=== PATIENT | female | born 1935 | race Caucasian/White ===

== ENCOUNTER → 2018-05-31 | Outpatient (CLI) | payer MEDICARE ==
[~2018-05-31] MED LIST: ACYC800 PO; CHOLESTEROL MED; DOCU100 PO; EZET10; GEMF600 PO; HYDACE5 PO; HYOS.125 SL; LACT10SY PO; LEVSOD100 PO; LEVSOD175; LEVSOD175 PO; LOPE2C PO; LOSHYD PO; OXYACE5T PO; PROM25 PO; TRAM50 PO; [UNRECOGNIZED DRUG - REMARK]
== END | disposition home or self-care (01) ==
LOC: LAB SHORT 13:15 → LAB 13:15
DX: L08.9 Local infection of the skin and subcutaneous tissue, unspecified (principal)
CPT/HCPCS: 87070; 87205

== ENCOUNTER 2019-01-16 17:43 | Emergency (ER) | payer MEDICARE ==
[~2019-01-16] VITALS: Ht 152.4 cm; Wt 72.6 kg
[2019-01-16 18:24] LABS: BASOPHILS ABSOLUTE AUTO 0.02 K/mm3 (0.00-0.23); BASOPHILS PERCENT AUTO 0 % (0-2); EOSINOPHILS ABSOLUTE AUTO 0.04 K/mm3 (0.00-0.68); EOSINOPHILS PERCENT AUTO 1 % (0-6); Hematocrit 41.9 % (33.0-51.0); Hemoglobin 13.5 g/dL (11.5-16.0); IMMATURE GRAN ABSOLUTE AUTO 0.04 K/mm3 (0.00-0.10); IMMATURE GRAN PERCENT AUTO 1 % (0-1); LYMPHOCYTES ABSOLUTE AUTO 0.43 K/mm3 (0.84-5.20); LYMPHOCYTES PERCENT AUTO 5 % (21-46); MONOCYTES ABSOLUTE AUTO 0.49 K/mm3 (0.16-1.47); MONOCYTES PERCENT AUTO 6 % (4-13); Mean Corpuscular HGB 31.9 pg (26.0-34.0); Mean Corpuscular HGB Conc 32.2 g/dL (31.5-36.5); Mean Corpuscular Volume 99 fL (80-100); NEUTROPHILS ABSOLUTE AUTO 7.11 K/mm3 (1.96-9.15); NEUTROPHILS PERCENT AUTO 88 % (41-73); Platelet Count 195 K/mm3 (150-400); RDW Coefficient Variation 13.6 % (11.7-14.2); RDW Standard Deviation 50.2 fL (35.1-46.3); Red Blood Cell Count 4.23 M/mm3 (3.80-5.20); White Blood Cell Count 8.13 K/mm3 (4.00-11.30)
[2019-01-16 18:50] LABS: Alanine Aminotransfer (ALT/SGP 19 U/L (12-78); Albumin, Blood 3.1 g/dL (3.4-5.0); Albumin/Globulin Ratio 0.9 (0.8-1.8); Alk Phos 69 U/L (50-136); Anion Gap 8 mmol/L (6-16); Aspartate Aminotrans (AST/SGOT 21 U/L (12-37); Bilirubin, Total 0.4 mg/dL (0.1-1.0); Blood Urea Nitrogen 23 mg/dL (8-24); Bun/Creatinine Ratio 28.6 (12.0-20.0); CO2, Blood 24 mmol/L (21-32); Calcium, Blood 8.6 mg/dL (8.5-10.1); Chloride, Blood 105 mmol/L (98-108); Creatinine, Blood 0.81 mg/dL (0.40-1.00); Globulin, Blood 3.4 g/dL (2.2-4.0); Glomerular Filtration Rate >60 (60-); Glucose, Blood 105 mg/dL (70-99); Potassium, Blood 3.3 mmol/L (3.5-5.5); Sodium, Blood 137 mmol/L (136-145); Total Protein, Blood 6.5 g/dL (6.4-8.2)
[2019-01-16 20:12] LABS: Source, Urine Clean Catch
[2019-01-16 20:15] LABS: Bilirubin, Urine Neg (Neg); Blood, Urine 1+ (Neg); Glucose Qualitative, Urine Neg (Neg); Ketones, Urine 1+ (Neg); Leukocyte Esterase, Urine 1+ (Neg); Nitrite, Urine Neg (Neg); Protein, Urine Neg (Neg); Urobilinogen, Urine NORM (Normal)
[2019-01-16 20:23] LABS: Appearance, Urine Cloudy (Clear); Color, Urine Yellow (P-Yellow)
[2019-01-16 20:26] LABS: Bacteria Rare /hpf; Mucus Light (0-Heavy); Red Blood Cells, Urine Not Seen /hpf (0-2); Squamous Epithelial Cells Mod /hpf (Few)
[2019-01-16] MEDS ORDERED: TEMA30 PO (21:29)
[2019-01-16] MEDS ORDERED: Xalatan2.5 ML (21:29)
[2019-01-16] MEDS ORDERED: OMEPRAZOLE MAGN20 MG PO (21:30)
[2019-01-16] MEDS ORDERED: DONEPEZIL HCL5 M1 PO (21:32)
[2019-01-16] MEDS ORDERED: VALSARTAN-HCTZ1 EACH PO (21:33)
[2019-01-16] MEDS ORDERED: ONDA4ODT MM (22:55)
== END 2019-01-16 23:19 | disposition home or self-care (01) ==
LOC: ER 17:43
PROVIDERS: Physician Assistant
DX: K52.9 Noninfective gastroenteritis and colitis, unspecified (principal); E86.0 Dehydration; I10 Essential (primary) hypertension; E78.5 Hyperlipidemia, unspecified; E03.9 Hypothyroidism, unspecified; Z88.1 Allergy status to other antibiotic agents; Z79.899 Other long term (current) drug therapy
CPT/HCPCS: 80053; 81001; 83690; 85025; 87086; 93005; 93010; 96361; 96374; 99284-25; A9270-GY; J2550; J7030

== ENCOUNTER 2019-09-16 09:09 | Day surgery (SDC) | payer MEDICARE ==
[~2019-09-16] VITALS: Ht 152.4 cm; Wt 71.7 kg
[~2019-09-16 09:09] MED LIST changes: +DONEPEZIL HCL5 M1 PO; +OMEPRAZOLE MAGN20 MG PO; +ONDA4ODT MM; +TEMA30 PO; +THERA1 EACH PO; +VALSARTAN-HCTZ1 EACH PO; +Xalatan2.5 ML BOTHEYES
--- NOTE | 2019-09-16 10:31 | NUR ---
History, Chart, Medications and Allergies reviewed before start of procedure. Patient confirms NPO status and agrees with scheduled surgery. Pre-Op teaching done. Pt verbalizes understanding. Patient reports completing Chlorhexadine shower X2 prior to admission to hospital. Surgical site prepped with 2% Chlorhexidine cloth wipe. Patient belongings under bed.
--- NOTE | 2019-09-16 11:13 | NUR ---
OXYCODONE ALLERGY CLARIFIED WITH DR. OSPINA AND ORDER FOR MEDICATION WAS CANCELLED.
--- NOTE | 2019-09-16 11:36 | NUR ---
MARIBELL DONE WITH PATIENT. ORAL MEDS GIVEN. DR. HA INTO SEE PATEINT
--- NOTE | 2019-09-16 15:47 | NUR ---
PT ARRIVED TO THE ROOM AT APPROXIMATELY 1405. PT IS ALERT AND ORIENTED. BLE REMAIN NUMB FROM SPINAL ANESTHESIA. PT DENIES NAUSEA. LR STARED. VSS. WILL CONTINUE TO MONITOR.
--- NOTE | 2019-09-16 17:47 | NUR ---
SHIFT SUMMARY PT ARRIVED TO THE ROOM AT APROXIMATELY 1505; HER L LEG REMAINS NUMB AT THIS TIME. SHE IS ABLE TO MOVE HER FEET ON BOTH LEGS. SHE IS TOLERATING PO AND HAS DENIED NAUSEA. PT REPORTED SHE IS CONCERNED ABOUT CONSTIPATION FROM TAKING PAIN MEDICATION. CALL REQUESTED FROM TOMMY CHAVEZ REGARDING PAIN MEDICATION AND BOWEL CARE; AWAITING RETURN CALL. PT'S DAUGHTER HAS BEEN PRESENT IN HER ROOM FOR SUPPORT. VSS. WILL MONITOR UNTIL REPORT TO ONCOMING RN.
[2019-09-17 04:01] LABS: BASOPHILS ABSOLUTE AUTO 0.02 K/mm3 (0.00-0.23); BASOPHILS PERCENT AUTO 0 % (0-2); EOSINOPHILS PERCENT AUTO 0 % (0-6); Hematocrit 33.8 % (33.0-51.0); IMMATURE GRAN ABSOLUTE AUTO 0.06 K/mm3 (0.00-0.10); IMMATURE GRAN PERCENT AUTO 1 % (0-1); LYMPHOCYTES ABSOLUTE AUTO 0.89 K/mm3 (0.84-5.20); LYMPHOCYTES PERCENT AUTO 8 % (21-46); MONOCYTES PERCENT AUTO 7 % (4-13); Mean Corpuscular HGB 32.5 pg (26.0-34.0); Mean Corpuscular HGB Conc 32.5 g/dL (31.5-36.5); Mean Corpuscular Volume 100 fL (80-100); Mean Platelet Volume 9.9 fL (9.1-12.4); NEUTROPHILS ABSOLUTE AUTO 9.21 K/mm3 (1.96-9.15); NEUTROPHILS PERCENT AUTO 84 % (41-73); Platelet Count 205 K/mm3 (150-400); RDW Coefficient Variation 13.5 % (11.7-14.2); RDW Standard Deviation 49.9 fL (35.1-46.3); Red Blood Cell Count 3.38 M/mm3 (3.80-5.20); White Blood Cell Count 10.98 K/mm3 (4.00-11.30)
[2019-09-17 04:19] LABS: Bun/Creatinine Ratio 36.4 (12.0-20.0); Calcium, Blood 8.8 mg/dL (8.5-10.1); Creatinine, Blood 1.1 mg/dL (0.40-1.00)
--- NOTE | 2019-09-17 04:20 | NUR ---
SHIFT SUMMARY POD 1 R TKA [id number], VSS. PT HAS BEEN UP AND AMBULATED TO RESTROOM, TOLERATED WELL. SALIMA WRAP IN PLACE CDI, POLAR ROGE ON DURING NIGHT. TOLERATING PO WELL. MEDICATED FOR PAIN PER EMAR, NEEDED 0.5 DILAUDID FOR BREAKTHROUGH PAIN, EDUCATED PT ON MEASURES TO HELP PREVENT CONSTIPATION. PT VOIDING. DENIES NAUSEA OR VOMITING.
--- NOTE | 2019-09-17 07:45 | NUR ---
09/17/19 0745 Lloyd Booker CORECTION OF STAFF AND PATTELLA IMPLANT TIME
[2019-09-17] MEDS ORDERED: TRAM50 PO (08:37)
[2019-09-17] MEDS ORDERED: Aspir 8181 MG PO (08:38)
--- NOTE | 2019-09-17 14:25 | NUR ---
THERAPY IN TO SEE PT.
--- NOTE | 2019-09-17 16:13 | NUR ---
DISCHARGE: PT EATING AND DRINKING, VOIDING, PASSING GAS. REPORTS PAIN CONTROLLED ON PO PAIN MEDICATION. PT CLEARED BY THERAPY TO GO HOME. PT REPORTS HAVING APPR EQUIP AT HOME. PT/FAMILY REPORTS UNDERSTANDING OF DISCHARGE INSTRUCTIONS INCLUDING POLAR PAC AND DRESSING CHANGES. DRESSING SUPPLIES AND POLAR PAC SENT WITH PT.
== END 2019-09-17 16:30 | disposition home or self-care (01) ==
LOC: ORSCMMR 09:09 → ORD 11:00 → SURS 15:11 → ORSCMMR 09-17 16:30
PROVIDERS: Orthopaedic Surgery
PROC: 0SRC0J9 Replacement of Right Knee Joint with Synthetic Substitute, Cemented, Open Approach (ICD-10-PCS; principal; 2019-09-16 11:00)
DX: M17.11 Unilateral primary osteoarthritis, right knee (principal); Z01.818 Encounter for other preprocedural examination; I10 Essential (primary) hypertension; Z79.899 Other long term (current) drug therapy
CPT/HCPCS: 36415; 73560-RT; 80048; 85025; 86850; 86900; 86901; 88300; 97110; 97116; 97161; C1713; C1776; J0171; J0690; J0735; J1100; J1170; J1885; J2405; J2704; J2795; J3010; J7120

== ENCOUNTER 2022-03-10 13:43 | Observation (INO) | payer MEDICARE ==
[~2022-03-10] VITALS: Ht 152.4 cm; Wt 70.3 kg
[~2022-03-10 13:43] MED LIST changes: +Aspir 8181 MG PO
[2022-03-10] MEDS ORDERED: HYDCHL25 PO (14:57)
[2022-03-10] MEDS ORDERED: MOBIC15 MG PO (14:58)
[2022-03-10 18:34] LABS: BASOPHILS ABSOLUTE AUTO 0.06 K/mm3 (0.00-0.23); BASOPHILS PERCENT AUTO 1 % (0-2); EOSINOPHILS ABSOLUTE AUTO 0.15 K/mm3 (0.00-0.68); EOSINOPHILS PERCENT AUTO 2 % (0-6); Hematocrit 41.3 % (33.0-51.0); Hemoglobin 12.9 g/dL (11.5-16.0); IMMATURE GRAN ABSOLUTE AUTO 0.06 K/mm3 (0.00-0.10); IMMATURE GRAN PERCENT AUTO 1 % (0-1); LYMPHOCYTES ABSOLUTE AUTO 1.09 K/mm3 (0.84-5.20); LYMPHOCYTES PERCENT AUTO 14 % (21-46); MONOCYTES ABSOLUTE AUTO 0.55 K/mm3 (0.16-1.47); MONOCYTES PERCENT AUTO 7 % (4-13); Mean Corpuscular HGB 31.1 pg (26.0-34.0); Mean Corpuscular HGB Conc 31.2 g/dL (31.5-36.5); Mean Corpuscular Volume 100 fL (80-100); Mean Platelet Volume 10.2 fL (9.1-12.4); NEUTROPHILS ABSOLUTE AUTO 5.74 K/mm3 (1.96-9.15); NEUTROPHILS PERCENT AUTO 75 % (41-73); Platelet Count 187 K/mm3 (150-400); RDW Standard Deviation 55.3 fL (35.1-46.3); Red Blood Cell Count 4.15 M/mm3 (3.80-5.20); White Blood Cell Count 7.65 K/mm3 (4.00-11.30)
[2022-03-10 18:40] LABS: Albumin, Blood 2.9 g/dL (3.4-5.0); Albumin/Globulin Ratio 0.9 (0.8-1.8); Bilirubin, Total 0.3 mg/dL (0.1-1.0); Bun/Creatinine Ratio 30.6 (12.0-20.0); Creatinine, Blood 1.08 mg/dL (0.40-1.00); Globulin, Blood 3.2 g/dL (2.2-4.0); Potassium, Blood 3.6 mmol/L (3.5-5.5); Total Protein, Blood 6.1 g/dL (6.4-8.2)
--- NOTE | 2022-03-11 04:14 | NUR ---
ASSUMED CARE OF PT AT 2044. PT IS A&OX4, MODERATE ASSIST TO BSC, AND IS ABLE TO MAKE NEEDS KNOWN. PT ARRIVES TO FLOOR LAST EVENING FROM THE ED FOR A FALL AND DISPLACED FRACTURE OF THE PUBIC RAMUS. STAND PIVOT TO BSC, COMPLAINTS OF NOT BEING ABLE TO MOVE R LEG VERY WELL. DECLINES PAIN MEDICATION. RESTS BETWEEN CARES, SLEEPS 6+ HOURS THIS SHIFT. VSS. WILL CONTINUE TO MONITOR AND GIVE HANDOFF REPORT TO ONCOMING RN.
[2022-03-11 04:53] LABS: BASOPHILS ABSOLUTE AUTO 0.05 K/mm3 (0.00-0.23); BASOPHILS PERCENT AUTO 1 % (0-2); EOSINOPHILS ABSOLUTE AUTO 0.39 K/mm3 (0.00-0.68); EOSINOPHILS PERCENT AUTO 6 % (0-6); Hematocrit 35.9 % (33.0-51.0); Hemoglobin 11.5 g/dL (11.5-16.0); IMMATURE GRAN ABSOLUTE AUTO 0.04 K/mm3 (0.00-0.10); IMMATURE GRAN PERCENT AUTO 1 % (0-1); LYMPHOCYTES ABSOLUTE AUTO 1.47 K/mm3 (0.84-5.20); LYMPHOCYTES PERCENT AUTO 24 % (21-46); MONOCYTES ABSOLUTE AUTO 0.67 K/mm3 (0.16-1.47); MONOCYTES PERCENT AUTO 11 % (4-13); Mean Corpuscular HGB 31.5 pg (26.0-34.0); Mean Corpuscular Volume 98 fL (80-100); Mean Platelet Volume 10.3 fL (9.1-12.4); NEUTROPHILS ABSOLUTE AUTO 3.49 K/mm3 (1.96-9.15); NEUTROPHILS PERCENT AUTO 57 % (41-73); Platelet Count 178 K/mm3 (150-400); RDW Coefficient Variation 15.1 % (11.7-14.2); RDW Standard Deviation 54.5 fL (35.1-46.3); Red Blood Cell Count 3.65 M/mm3 (3.80-5.20); White Blood Cell Count 6.11 K/mm3 (4.00-11.30)
[2022-03-11 05:13] LABS: Albumin, Blood 2.8 g/dL (3.4-5.0); Bilirubin, Total 0.4 mg/dL (0.1-1.0); Bun/Creatinine Ratio 34.2 (12.0-20.0); Creatinine, Blood 1.11 mg/dL (0.40-1.00); Globulin, Blood 2.9 g/dL (2.2-4.0); Potassium, Blood 4.2 mmol/L (3.5-5.5); Total Protein, Blood 5.7 g/dL (6.4-8.2)
--- NOTE | 2022-03-11 07:35 | NUR ---
ASSUMED CARE: PT RESTING QUIETLY AT THIS TIME. NO ACUTE NEEDS OR CONCERNS.
[2022-03-11] MEDS ORDERED: DOCU100 PO (11:25)
[2022-03-11] MEDS ORDERED: MIRALAX17 GM PO (11:26)
[2022-03-11] MEDS ORDERED: TRAM50 PO (11:26)
--- NOTE | 2022-03-11 13:30 | NUR ---
PT'S IV REMOVED WNL. INSTRUCTED PT AND DAUGHTER REGARDING EQUIPMENT NEEDS AND TO GRADUALLY INCREASE AMBULATION ABLE. ESCORTED OUT VIA WHEEL CHAIR. DENIED FURTHER NEEDS OR CONCERNS.
== END 2022-03-11 13:48 | disposition home or self-care (01) ==
LOC: ER 13:43 → MEDS 13:44 → SURS 20:46
PROVIDERS: Emergency Medicine; Family Medicine; ADMIT Internal Medicine
DX: S32.591A Other specified fracture of right pubis, initial encounter for closed fracture (principal); W19.XXXA Unspecified fall, initial encounter; I10 Essential (primary) hypertension; H40.10X0 Unspecified open-angle glaucoma, stage unspecified; E03.9 Hypothyroidism, unspecified; E78.5 Hyperlipidemia, unspecified; Z88.1 Allergy status to other antibiotic agents; Z88.5 Allergy status to narcotic agent; Z88.8 Allergy status to other drugs, medicaments and biological substances; Z79.899 Other long term (current) drug therapy
CPT/HCPCS: 36415; 73502; 80053; 85025; 96372; 97110; 97161; 97530; 99285-25; A9270; G0378; J1650

== ENCOUNTER → 2022-06-27 | Outpatient (CLI) | payer MEDICARE ==
[~2022-06-27] MED LIST changes: +HYDCHL25 PO; +MIRALAX17 GM PO; +MOBIC15 MG PO
== END | disposition home or self-care (01) ==
LOC: LAB SHORT 11:32 → LAB 11:32
DX: A49.9 Bacterial infection, unspecified (principal); L21.8 Other seborrheic dermatitis; L85.3 Xerosis cutis; D22.62 Melanocytic nevi of left upper limb, including shoulder; D22.61 Melanocytic nevi of right upper limb, including shoulder; L82.1 Other seborrheic keratosis
CPT/HCPCS: 87070; 87205